=== PATIENT | female | born 1990 | race Hispanic/Latino ===

== ENCOUNTER → 2017-12-10 | Outpatient (CLI) | payer OTHER ==
--- NOTE | 2017-12-10 12:07 | Diagnostic Imaging Report ---
HISTORY: N91.2 (amenorrhea), K76.89 (other diseases of the liver) TECHNIQUE: Selected static images from complete abdominal ultrasound provided for INTERPRETATION: COMPARISON: None. FINDINGS: Pancreas: Visualized portions are increased in echotexture without mass or ductal dilatation. Liver: Measures 17.0 cm in sagittal plane. The echotexture is increased. No mass in the visualized portions. Portal Vein: Measures 1.2 cm. Hepatopetal flow on spectral Doppler interrogation. Biliary Tree: Normal Gallbladder: No evidence of gallstone or gallbladder wall thickening. CBD: 0.5 cm. Right Kidney: Length is 11.8 cm. Echotexture is normal. No mass or hydronephrosis. Left Kidney: Length is 10.8 cm. Echotexture is normal. No mass or hydronephrosis. Spleen: 13.0 cm in length. No evidence for mass. Aorta: Visualized portions are normal in diameter and morphology IVC: Patent No free fluid IMPRESSION: 1. Steatosis and mild hepatomegaly. 2. Top normal size of the spleen. 3. Pancreas lipomatosis. 4. Normal gallbladder and biliary tree. Signed by: Dr. Adrián Krishna MD on 12/10/2017 12:03 PM
== END ==
LOC: US 09:08
PROVIDERS: ATTEND Internal Medicine
DX: N91.2 Amenorrhea, unspecified (principal)
CPT/HCPCS: 76700

== ENCOUNTER → 2018-03-29 | Outpatient (CLI) | payer OTHER | LOC: SLEEP 19:54 | PROVIDERS: ATTEND Internal Medicine | DX: G47.33 Obstructive sleep apnea (adult) (pediatric) (principal) | CPT/HCPCS: 95811 ==